=== PATIENT | female | born 1970 | race American Indian/Alaskan Native ===

== ENCOUNTER 2017-03-11 17:09 | Emergency (ER) | payer OTHER ==
[2017-03-11 17:47] LABS: Basophils % (Auto) 0.6 % (0.0-1.8); Eosinophils % (Auto) 1.1 % (0.0-4.3); Hematocrit 23.5 % (30.3-42.9); Hemoglobin 7.2 gm/dl (10.1-14.3); Mean Corpuscular HGB Conc 31 % (30-34); Mean Corpuscular Volume 71 fl (79-97); Platelet Count 287 K/mm3 (140-440); Red Blood Count 3.29 M/mm3 (3.65-5.03); Red Cell Distribution Width 18.7 % (13.2-15.2); White Blood Count 4.9 K/mm3 (4.5-11.0)
[2017-03-11 17:51] LABS: Mean Corpuscular Hemoglobin 22 pg (28-32)
[2017-03-11 19:24] LABS: Anion Gap 18 mmol/L; Blood Urea Nitrogen 9 mg/dL (7-17); Calcium 8.6 mg/dL (8.4-10.2); Carbon Dioxide 24 mmol/L (22-30); Chloride 104.6 mmol/L (98-107); Glucose 111 mg/dL (65-100); Potassium 3.8 mmol/L (3.6-5.0); Sodium 143 mmol/L (137-145)
--- NOTE | 2017-03-11 23:18 | Emergency Department Report ---
HPI - General Chief Complaint: Recheck/Abnormal Lab/Rx Time Seen by Provider: 03/11/17 22:49 - HPI HPI: This is a 47-year-old female presents to the emergency department, sent in by her PCP, with the complaint of low hemoglobin. The patient had some regular blood work done at her PCPs office, Dr. Saenz, and she picked up the blood work today showing a hemoglobin of 6.8. The paperwork also shows that the patient has some iron deficiency. She denies any headache, vision change, chest pain, shortness of breath, palpitations, lightheadedness or dizziness and basically says that she feels normal. She has been working every day without any difficulty. She denies any tobacco abuse. She otherwise has denied any past medical history. She was just given some iron supplementation pills by her PCP and has taken 2 days worth. ED Past Medical Hx - Past Medical History Previous Medical History?: No - Surgical History Past Surgical History?: No - Social History Smoking Status: Never Smoker Substance Use Type: None ED Review of Systems ROS: Stated complaint: ABNORMAL LABS/SENT FROM PHYS Other details as noted in HPI Comment: All other systems reviewed and negative Constitutional: denies: chills, fever Eyes: denies: eye pain, eye discharge, vision change ENT: denies: ear pain, throat pain Respiratory: denies: cough, shortness of breath, wheezing Cardiovascular: denies: chest pain, palpitations Gastrointestinal: denies: abdominal pain, nausea, diarrhea Genitourinary: denies: urgency, dysuria, discharge Musculoskeletal: denies: back pain, joint swelling, arthralgia Skin: denies: rash, lesions Neurological: denies: headache, weakness, paresthesias Physical Exam - Physical Exam Vital Signs: Vital Signs 03/11/17 03/11/17 17:26 22:39 Temperature 98.6 F Pulse Rate 81 Respiratory 18 18 Rate Blood Pressure 116/72 O2 Sat by Pulse 100 100 Oximetry Physical Exam: GENERAL: The patient is well-developed well-nourished. HEENT: Normocephalic. Atraumatic. Extraocular motions are intact. Patient has moist mucous membranes. Pupils equal reactive to light bilaterally. Pale conjunctiva. No nystagmus. NECK: Supple. Trachea is midline. CHEST/LUNGS: Clear to auscultation. There is no respiratory distress noted. HEART/CARDIOVASCULAR: Regular. There is no tachycardia. There is no gallop rub or murmur. ABDOMEN: Abdomen is soft, nontender. Patient has normal bowel sounds. There is no abdominal distention. SKIN: Skin is warm and dry. NEURO: The patient is awake, alert, and oriented. The patient is cooperative. The patient has no focal neurologic deficits. The patient has normal speech. MUSCULOSKELETAL: There is no tenderness or deformity. There is no limitation range of motion. There is no evidence of acute injury. ED Course Vital Signs 03/11/17 03/11/17 17:26 22:39 Temperature 98.6 F Pulse Rate 81 Respiratory 18 18 Rate Blood Pressure 116/72 O2 Sat by Pulse 100 100 Oximetry ED Medical Decision Making - Lab Data Result diagrams: 03/11/17 17:35 03/11/17 17:35 - Medical Decision Making 47-year-old female presents with some lab work from her PCP that showed hemoglobin of 6.8 and iron deficiency. Her hemoglobin here today is 7.2. The patient is asymptomatic without any chest pain, shortness of breath, weakness, lightheadedness, dizziness and basically is at her baseline status. Vital signs stable throughout her ED course. The rest the blood work is unremarkable. She was given a choice of whether to continue with her iron pills or to receive 1 unit of packed red blood cells and the patient said that she would like to try the iron pill supplementation first. She will return to the ER with any worsening of her symptoms and has been encouraged to follow up with the PCP on Tuesday. - Differential Diagnosis iron deficiency anemia, B12 deficiency, bleeding Critical Care Time: No Critical care attestation.: If time is entered above; I have spent that time in minutes in the direct care of this critically ill patient, excluding procedure time. ED Disposition Clinical Impression: Iron deficiency anemia Qualifiers: Iron deficiency anemia type: unspecified iron deficiency Qualified Code(s): D50.9 - Iron deficiency anemia, unspecified Disposition: - TO HOME OR SELFCARE Is pt being admited?: No Condition: Good Instructions: Iron Rich Diet (ED), Iron Deficiency Anemia (ED), Anemia (ED) Additional Instructions: Please follow-up with your primary care doctor on Tuesday. Return to the emergency department with any development of chest pain, shortness of breath, weakness or any acute distress. Continue with your iron pills and I have provided you with some information about an iron rich diet. Referrals: PRIMARY CARE, [Primary Care Provider] - [facility] Time of Disposition: 23:18
[2017-03-12 00:11] VITALS: BP 120/62
== END 2017-03-12 00:19 | disposition home or self-care (01) ==
LOC: ED 17:09
DX: D50.9 Iron deficiency anemia, unspecified (principal)
CPT/HCPCS: 36415; 80048; 85025

== ENCOUNTER 2017-03-24 13:35 | Outpatient (CLI) | payer OTHER ==
--- NOTE | 2017-03-25 10:55 | Ultrasound Report ---
TRANSABDOMINAL AND TRANSVAGINAL PELVIC ULTRASOUND: 03/24/17 13:35:00 CLINICAL: Pelvic pain and heavy menses. FINDINGS: Transabdominal and transvaginal pelvic ultrasound demonstrated an enlarged fibroid uterus measuring 11.2 x 5.4 x 7.7 cm. An anterior subserosal lower uterine segment fibroid measures 3.9 x 3.3 x 3.4 cm and is the largest fibroid. A semi-total fundal fibroid measures 3.0 x 1.6 x 2.3 cm.A thickened proliferative endometrium measures 22 mm in thickness. Alethea right ovary. The right ovary measures 2.3 x 1.4 x 2.2cm. Normal left ovary with a dominant 2.6 cm follicle. The left ovary measures 2.6 x 2.4 x 2.6cm. No adnexal mass. No free fluid. Normal urinary bladder. IMPRESSION: 1. An enlarged fibroid uterus with a 3 cm fundal sub-mucosal fibroid. 2. Thickened proliferative endometrium. 3. Normal ovaries with a dominant 2.6 cm follicle the left ovary.
--- NOTE | 2017-03-25 11:03 | Ultrasound Report ---
ULTRASOUND LEFT GROIN: 03/24/17 CLINICAL: Groin mass. FINDINGS: Ultrasound of the left groin demonstrated two anechoic cystic masses with well-defined jerez. The larger measures 3.5 x 3.4 x 1.6 cm and the smaller measures 1.7 x 0.7 x 1.5 cm. A mildly enlarged lymph node in the groin has central fat and benign morphology and measures 1.6 x 0.8 x 1.1 cm. A second lymph node in the groin has central fat and benign morphology and measures 1.7 x 0.5 x 1.2 cm. IMPRESSION: 1. Two cystic masses of the left groin of uncertain etiology. Both would be amenable to ultrasound-guided aspiration for cytologic analysis. 2.Two lymph nodes of the left groin with benign morphology. 3. No lymphadenopathy
--- NOTE | 2017-03-25 12:31 | Mammography Report ---
BILATERAL DIGITAL SCREENING MAMMOGRAM WITH CAD: 03/24/17 13:35:00 CLINICAL: Routine screening. COMPARISON:None available. FINDINGS: The breasts are extremely dense which limits the sensitivity of mammography. A group of left upper outer periareolar calcifications and a right asymmetry require additional imaging. IMPRESSION: Right asymmetry and left calcifications requiring further workup. BI-RADS CATEGORY: 0 -- Additional Imaging Evaluation Required RECOMMENDATION: Recall for right spot compression views and left tangential and spot magnification views . ACR BI-RADS MAMMOGRAPHIC CODES: 0 = Needs additional imaging evaluation; 1 = Negative; 2 = Benign; 3 = Probably benign; 4 = Suspicious; 5 = Malignant; 6 = Known biopsy-proven malignancy COMMENT: 1. Dense breast tissue, i.e., adenosis, fibrocystic changes, etc., may obscure an underlying neoplasm. 2. Approximately 10% of cancers are not detected with mammography. 3. A negative mammography report should not delay biopsy if a clinically suspicious mass is present. COMMENT: Patient follow-up letters are generated via our [employer] application.
== END 2017-03-24 13:36 | disposition home or self-care (01) ==
LOC: SPVWC 13:35
PROVIDERS: ATTEND Family Medicine
DX: Z12.31 Encounter for screening mammogram for malignant neoplasm of breast (principal); D25.2 Subserosal leiomyoma of uterus; D25.0 Submucous leiomyoma of uterus; R93.8 Abnormal findings on diagnostic imaging of other specified body structures; R19.00 Intra-abdominal and pelvic swelling, mass and lump, unspecified site; R59.9 Enlarged lymph nodes, unspecified
CPT/HCPCS: 76830; 76856; 76881; G0202; 77067

== ENCOUNTER 2017-04-13 11:18 | Outpatient (CLI) | payer OTHER ==
--- NOTE | 2017-04-13 13:00 | Mammography Report ---
BILATERAL DIGITAL DIAGNOSTIC MAMMOGRAM and BILATERAL BREAST ULTRASOUND: 04/13/17 11:18:00 CLINICAL: Recall for a right asymmetry and left calcifications. COMPARISON:03/24/17 screening FINDINGS: Right spot compression views were performed. An oval partially circumscribed mass persists on the CC spot but is not identified on the MLO spot. ML and CC magnification views of the left breast demonstrate a group of suspicious segmental amorphous calcifications at 12:30 o'clock approximately 2 cm from the nipple.The group measures approximately 8 x 8 x 5 mm and a 2.5 mm adjacent group of calcifications is approximately 5 mm from the larger group on the CC view. No layering on the lateral view. Ultrasound of the inner right breast was performed and demonstrated a solid hypoechoic bilobed mass at 3 o'clock 3 cm from the nipple. It measures 1.5 x 1.4 x 0.5 cm and correlates with the mammographic mass. A single lymph node in the right axilla has benign morphology and measures 1.3 x 1.0 x 0.6 cm. Ultrasound of the upper left breast was performed and failed to demonstrate a mass to correlate with the mammographic calcifications. IMPRESSION: Suspicious left calcifications at 12:30 o'clock 2 cm from the nipple. Recommend surgical excision. She is not a candidate for stereotactic biopsy because of her breast size.Recommend either ultrasound guided needle biopsy or ultrasound surveillance of the right breast mass at 3 o'clock. If a needle biopsy is not performed, recommend ultrasound surveillance for 2 years and six month intervals to confirm benignity. I discussed the findings and the recommendation for consultation with a breast surgeon regarding excision of the left calcifications and possible needle biopsy of the right breast mass. BI-RADS CATEGORY: 4--Suspicious ACR BI-RADS MAMMOGRAPHIC CODES: 0 = Needs additional imaging evaluation; 1 = Negative; 2 = Benign; 3 = Probably benign; 4 = Suspicious; 5 = Malignant; 6 = Known biopsy-proven malignancy COMMENT: 1. Dense breast tissue, i.e., adenosis, fibrocystic changes, etc., may obscure an underlying neoplasm. 2. Approximately 10% of cancers are not detected with mammography. 3. A negative mammography report should not delay biopsy if a clinically suspicious mass is present. COMMENT: Patient follow-up letters are generated via our [employer] application.
== END 2017-04-13 11:19 | disposition home or self-care (01) ==
LOC: SPVWC 11:18
PROVIDERS: ATTEND Family Medicine
DX: N63 Unspecified lump in breast (principal); R92.1 Mammographic calcification found on diagnostic imaging of breast; N64.89 Other specified disorders of breast
CPT/HCPCS: 76642; G0204; 77066